=== PATIENT | female | born 2000 | race Caucasian/White ===

== ENCOUNTER 2023-02-06 06:07 | Emergency (ER) | payer MEDICAID ==
[~2023-02-06] VITALS: Ht 160 cm; Wt 62.8 kg
[2023-02-06 06:15] VITALS: BP 113/67; PULSE 102; RESP 16; TEMP 98.2; O2SAT 99
[2023-02-06] MEDS ORDERED: AUG875T PO (07:01)
[2023-02-06] MEDS ORDERED: METH4PAK PO (07:01)
== END 2023-02-06 07:12 | disposition home or self-care (01) ==
LOC: ER 06:07
DX: H66.91 Otitis media, unspecified, right ear (principal); Z88.6 Allergy status to analgesic agent; Z91.013 Allergy to seafood

== ENCOUNTER 2023-02-24 16:14 | Inpatient (IN) | payer MEDICAID ==
[~2023-02-24] VITALS: Ht 160 cm; Wt 62.1 kg
[~2023-02-24 16:14] MED LIST: AUG875T PO; METH4PAK PO
[2023-02-24] MEDS ORDERED: IPRATROPIUM BROM 0.5 MG/2.5ML INH SOL NEB ONE (19:00)
[2023-02-24] MEDS ORDERED: guaiFENesin-CODEINE Liq 5 ML UD PO ONE (19:00)
[2023-02-24] MEDS ORDERED: Acetam/CODEINE 120mg/12mg per 5mL UD PO ONE (19:00)
[2023-02-24] MEDS ORDERED: DexAMETHasone SOD PHOS 10MG/1ML VIAL INJ IM ONE (19:00)
[2023-02-24 19:24] LABS: Basophils # (auto) 0 10 ^3/uL (0-0.2); Basophils % (auto) 0.3 % (0.0-2.0); Eosinophils # (auto) 0.1 10 ^3/uL (0-0.8); Eosinophils % (auto) 1.2 % (0.0-7.0); Hematocrit 42.5 % (36.0-46.0); Hemoglobin 14.3 g/dL (12.2-16.2); Lymphocytes # (auto) 1.2 10 ^3/uL (0.4-5.4); Lymphocytes % (auto) 9.7 % (10.0-50.0); Mean Corpuscular Hemoglobin 31.1 pg (28.0-32.0); Mean Corpuscular Hgb Conc. 33.7 g/dL (32.0-36.0); Mean Corpuscular Volume 92.5 fL (80.0-100.0); Monocytes # (auto) 0.6 10 ^3/uL (0-1.3); Monocytes % (auto) 4.9 % (0.0-12.0); Neutrophils # (auto) 10.6 10 ^3/uL (1.6-8.6); Neutrophils % (auto) 83.9 % (37.0-80.0); Red Blood Cells 4.59 10^6/uL (4.0-5.20); Red Cell Distribution Width 13.4 % (11.8-14.3); White Blood Cell 12.6 10^3/uL (4.4-10.8)
[2023-02-24 19:40] LABS: Alanine Aminotransferase 16 U/L (7-40); Alkaline Phosphatase 63 U/L (46-116); Anion Gap 10 (5-15); Aspartate Aminotransferase 17 U/L (13-40); BUN/Creatinine Ratio 14.3 (10.0-20.0); Bilirubin, Total 0.6 mg/dL (0.2-1.0); Blood Urea Nitrogen 12 mg/dL (9-23); Carbon Dioxide 24 mmol/L (20-30); Chloride 108 mmol/L (98-107); Glucose 80 mg/dL (74-106); Potassium 4.2 mmol/L (3.5-5.1); Sodium 142 mmol/L (136-145); Total Protein 7.2 g/dL (5.7-8.2)
[2023-02-24 19:49] LABS: CRP High Sensitivity 1.64 mg/dL (<1.0)
[2023-02-24] MEDS: LEVALBUTEROL HCL 1.25 MG/3 ML NEB NEB SCH (20:12)
[2023-02-24 20:14] LABS: Erythrocyte Sedimentation Rate 12 mm/hr (0-20)
[2023-02-24] MEDS ORDERED: ACETAMINOPHEN/CODEINE#3 (300/30mg) TAB PO ONE (20:15)
[2023-02-24 20:30] VITALS: PULSE 96; RESP 16; O2SAT 99
[2023-02-24 21:28] LABS: COVID19 ANTIGEN SOFIA FIA NEGATIVE (NEGATIVE); Rapid Influenza A Negative (Negative); Rapid Influenza B Negative (Negative)
[2023-02-25] VITALS (7 sets, daily range): BP systolic 100–128; BP diastolic 58–84; PULSE 73–105; RESP 14–19; TEMP 97.9–98.4; O2SAT 96–99
[2023-02-25] MEDS ORDERED: ALBUTEROL SULF 2.5 MG/0.5ML(0.5%) NEB SOLN NEB PRN (04:00)
[2023-02-25] MEDS ORDERED: NITROGLYCERIN 0.4 MG SL TAB SL PRN (04:00)
[2023-02-25] MEDS ORDERED: ACETAMINOPHEN 325 MG TAB PO PRN (04:00)
[2023-02-25] MEDS ORDERED: MORPHINE SULFATE INJ 2 MG/ml SYRG IV PRN (04:00)
[2023-02-25] MEDS ORDERED: ONDANSETRON HCL 4 MG/2 ML VIAL IV PRN (04:00)
[2023-02-25] MEDS: LEVALBUTEROL HCL 1.25 MG/3 ML NEB NEB SCH ×2 (07:23→11:49)
[2023-02-25] MEDS ORDERED: cefTRIAXone 1GM/50ML D5W 50 ML IV SCH (09:00)
== END 2023-02-25 15:15 | disposition home or self-care (01) | DRG 145 ==
LOC: ER 16:14 → TELE 02-25 03:53 → UNDOADMIN 02-25 03:53 → TELE 02-25 04:00 → ER 02-25 04:00 → TELE 02-25 15:02
PROVIDERS: ADMIT Nurse Practitioner; ATTEND Nurse Practitioner
DX: J20.9 Acute bronchitis, unspecified (principal); D72.829 Elevated white blood cell count, unspecified; Z20.822 Contact with and (suspected) exposure to COVID-19; F41.9 Anxiety disorder, unspecified; Z88.8 Allergy status to other drugs, medicaments and biological substances; Z91.041 Radiographic dye allergy status; Z91.013 Allergy to seafood; Z91.018 Allergy to other foods; Z86.018 Personal history of other benign neoplasm
CPT/HCPCS: 36415; 71045; 80053; 83735; 84443; 84484; 85025; 85652; 86141; 87426; 87804; 93005; 93306; 94640; 96365; 96372; G0378; J1100

== ENCOUNTER 2023-11-12 08:26 | Emergency (ER) | payer MEDICAID ==
[~2023-11-12] VITALS: Ht 160 cm; Wt 62.9 kg
[2023-11-12 09:04] VITALS: BP 136/84; PULSE 98; RESP 18; TEMP 98.1; O2SAT 98
[2023-11-12] MEDS ORDERED: AMOX500C2 PO (09:25)
== END 2023-11-12 09:37 | disposition home or self-care (01) ==
LOC: ER 08:26
DX: J01.00 Acute maxillary sinusitis, unspecified (principal); Z85.9 Personal history of malignant neoplasm, unspecified; Z87.891 Personal history of nicotine dependence; Z79.899 Other long term (current) drug therapy; Z91.013 Allergy to seafood; Z88.8 Allergy status to other drugs, medicaments and biological substances; Z91.018 Allergy to other foods

== ENCOUNTER 2024-01-12 08:55 | Emergency (ER) | payer MEDICAID ==
[~2024-01-12] VITALS: Ht 160 cm; Wt 65.0 kg
[~2024-01-12 08:55] MED LIST changes: +AMOX500C2 PO
--- NOTE | 2024-01-12 09:35 | ED.PDOC ---
History of Present Illness HPI Comments 23-year-old female who comes in with chief complaint of right-sided back pain. The patient states that she has been having increased symptoms and has been worked up by her neurologist. The patient states that she had a CT scan of her thoracic spine which showed an old T8 and T11 fracture. The patient states that the pain is a 10/10. She takes baclofen for the pain at this time. There has been no vomiting or diarrhea. The patient denies any fever or chills. Chief Complaint: Back Pain Time Seen by MD: 08:58 Primary Care Provider: liv Reviewed Notes: Nurses Notes, Medications, Allergies (Allergies listed above) Allergies: Coded Allergies: [place] (Verified Allergy, Unknown, 11/14/15) Fish Allergy (Verified Allergy, Unknown, 11/14/15) Iodine (Verified Allergy, Unknown, 11/14/15) Propranolol (Verified Allergy, Unknown, 02/24/23) Shellfish Allergy (Verified Allergy, Unknown, 11/14/15) Soy Allergy (Verified Allergy, Unknown, 02/24/23) Wheat (Verified Allergy, Unknown, 02/24/23) Uncoded Allergies: PROPANOLOL (Allergy, Unknown, 11/14/15) SOY (Allergy, Unknown, 11/14/15) WHEAT (Allergy, Unknown, 11/14/15) Home Meds Active Scripts Hydrocodone-Acetaminophen (Hydrocodone Bitartrate/AC 5-325 mg) 1 Tab Tab, 1 TAB PO Q8HP PRN for 5 Days, #15 TAB Prov:KARLA CHAPMAN MD 01/12/24 Methylprednisolone (Medrol Dosepak) 4 Mg Solo, 4 MG PO UD, #21 TAB UAD Prov:KARLA CHAPMAN MD 01/12/24 Methylprednisolone (Medrol Dosepak) 4 Mg Solo, 4 MG PO UD, #21 TAB UAD Prov:ROBERT MESSINA 11/12/23 Amoxicillin Trihydrate (Amoxicillin) 500 Mg Cap, 1 CAP PO TID, #30 CAP Prov:ROBERT MESSINA 11/12/23 Amoxicillin & Pot Clavulanate (AUGMENTIN TABLET) 875 Mg Tb, 875 MG PO BID, #20 TAB Prov:ROBERT MESSINA 02/06/23 Information Source: Patient Mode of Arrival: Ambulatory Severity: Moderate Timing: Days Duration: Since onset Prehospital treatment: None Location: Right-sided back pain Associated signs and symptoms No nausea, vomiting or diarrhea Past Medical History PAST MEDICAL HISTORY: Cancer Surgical History (Other): Previous history of brain surgery [employer] History: Denies all MET[employer] Hx Family History Family History: Reviewed,noncontributory to illness Social History Smoker: Other (VAPE) Alcohol: Denies ETOH Use Drugs: Marijuana Lives In: Home Constitutional: denies: chills, diaphoresis, fatigue, fever, malaise, sweats, weakness, others EENTM: denies: blurred vision, double vision, ear bleeding, ear discharge, ear drainage, ear pain, ear ringing, eye pain, eye redness, hearing loss, mouth pain, mouth swelling, nasal discharge, nose bleeding, nose congestion, nose pain, photophobia, tearing, throat pain, throat swelling, voice changes, others Respiratory: denies: cough, hemoptysis, orthopnea, SOB at rest, shortness of breath, SOB with excertion, stridor, wheezing, others Cardiovascular: denies: chest pain, dizzy spells, diaphoresis, Dyspnea on exertion, edema, irregular heart beat, left arm pain, lightheadedness, palpitations, PND, syncope, others Gastrointestinal: denies: abdomen distended, abdominal pain, blood streaked bowels, constipated, diarrhea, dysphagia, difficulty swallowing, hematemesis, melena, nausea, poor appetite, poor fluid intake, rectal bleeding, rectal pain, vomiting, others Genitourinary: denies: abnormal vagina bleeding, burning, dyspareunia, dysuria, flank pain, frequency, hematuria, incontinence, pain, , vagina discharge, urgency, others Neurological: denies: dizziness, fainting, headache, left sided numbness, left sided weakness, numbness, paresthesia, pre-existing deficit, right sided numbness, right sided weakness, seizure, speech problems, tingling, tremors, weakness, others Musculoskeletal: reports: back pain (Right-sided back pain); denies: gout, joint pain, joint swelling, muscle pain, muscle stiffness, neck pain, others Integumetry: denies: bruises, change in color, change in hair/nails, dryness, laceration, lesions, lumps, rash, wounds, others Allergic/Immunocompromised: denies: Difficulty Healing, Frequent Infections, Hives, Itching, others Hematologic/Lymphatic: denies: anemia, blood clots, easy bleeding, easy bruising, swollen glands, others Endocrine: denies: excessive hunger, excessive sweating, excessive thirst, excessive urination, flushing, intolerance to cold, intolerance to heat, unexplained weight gain, unexplained weight loss, others Psychiatric: denies: anxiety, bipolar disorder, depression, hopeless, panic disorder, schizophrenia, sleepless, suicidal, others Physical Exam General Appearance: Mild Distress HEENT: Normal ENT Inspection, Pharynx Normal, TMs Normal Neck: Full Range of Motion, Non-Tender, Normal, Normal Inspection Respiratory: Chest Non-Tender, Lungs Clear, No Accessory Muscle Use, No Respiratory Distress, Normal Breath Sounds Cardiovascular: No Edema, No JVD, No Murmur, No Gallop, Normal Peripheral Pulses, Regular Rate/Rhythm Breast Exam: Deferred Gastrointestinal: No Organomegaly, Non Tender, No Pulsatile Mass, Normal Bowel Sounds, Soft Genitalia: Deferred Pelvic: Deferred Rectal: Deferred Extremities: No calf tenderness, Normal capillary refill, Normal inspection, N ormal range of motion, Non-tender, No pedal edema Musculoskeletal : Location: Right Extremity Location: Back Apperance: Limited ROM, Tenderness: Moderate Neurologic: Alert, legal activity adjudicator II-XII nml as Tested, No Motor Deficits, Normal Affect, Normal Mood, No Sensory Deficits Cerebellar Function: Normal Reflexes: Normal Skin: Dry, Normal Color, Warm Lymphatic: No Adenopathy Was a procedure done? Was a procedure done?: No Differential Dx Considerations may include: Fracture, strain, contusion X-Ray, Labs, Meds, VS Vital Signs Date Time Temp Pulse Resp B/P (MAP) Pulse Ox O2 Delivery O2 Flow Rate FiO2 01/12/24 09:20 97.6 100 18 133/67 (89) 99 The patient was given Dilaudid 1 mg IM for the pain The patient's CT scan of the thoracic spine shows: IMPRESSION: 1. Stable moderate anterior compression deformity of T8 with approximately 30% loss of height anteriorly without retropulsion. This can be further evaluated with MRI if clinically warranted. 2. No significant degenerative disc disease. The patient was told to follow up with the primary care doctor The patient was given a prescription of [place] Images Reviewed?: Images reviewed and evaluated by me Time of 1ST Reevaluation: 09:30 Reevaluation 1ST: Unchanged Patient Education/Counseling: Diagnosis, Treatment, Prognosis, Need For Follow Up Family Education/Counseling: No Family Present Departure 1 Departure Time of Disposition: 10:42 Impression: Primary Impression: Chronic back pain Qualified Codes: M54.6 - Pain in thoracic spine; G89.29 - Other chronic pain Additional Impression: Compression fx, thoracic spine Qualified Codes: S22.000S - Wedge compression fracture of unspecified thoracic vertebra, sequela Disposition: HOME / SELF CARE / HOMELESS Condition: Fair e-Prescriptions Hydrocodone-Acetaminophen (Hydrocodone Bitartrate/AC 5-325 mg) 1 Tab Tab 1 TAB PO Q8HP PRN for 5 Days, #15 TAB Prov: KARLA CHAPMAN MD 01/12/24 Methylprednisolone (Medrol Dosepak) 4 Mg Solo 4 MG PO UD, #21 TAB UAD Prov: KARLA CHAPMAN MD 01/12/24 Discharged With: Self Critical Care Note Critical Care Time?: No Stability Stability form required: No Heart Score Heart Score: Heart Score Response (Comments) Value History N/A 0 EKG N/A 0 Age N/A 0 Risk Factors N/A 0 Troponin N/A 0 Total 0 KARLA CHAPMAN MD Jan 12, 2024 09:35
--- NOTE | 2024-01-12 10:23 | DVH ---
Procedure: CT THORACIC SPINE WO CONTRAS 01/12/2024 09:39 AM Indication: pain Comparison Study: Chest CT angiogram dated 02/24/2023 Technique: Axial images were obtained and reformatted in coronal and sagittal planes. All CT scans at this medical facility are performed using dose modulation techniques as appropriate t o a performed exam including the following: Automated exposure control was utilized; adjustment of th e MA and/or KV according to patient size; and use of iterative reconstruction technique. CT Dose: CTDI volume is 11.52 mGy. Dose-length product is 486.55 mGy*cm FINDINGS: Bones: Stable moderate anterior compression deformity of T8 with approximately 30% loss of height ant eriorly without retropulsion. Disc spaces are maintained. No discogenic endplate changes noted. The p osterior facet joints are well aligned. Soft tissues: Unremarkable. IMPRESSION: 1. Stable moderate anterior compression deformity of T8 with approximately 30% loss of height anterio rly without retropulsion. This can be further evaluated with MRI if clinically warranted. 2. No significant degenerative disc disease.
[2024-01-12] MEDS ORDERED: HYDR-4902 PO (10:40)
[2024-01-12] MEDS ORDERED: METH4PAK PO (10:40)
[2024-01-12] MEDS: ONDANSETRON HCL 4 MG/2 ML VIAL IM ONE (10:55)
[2024-01-12] MEDS: HYDROMORPHONE HCL 1 MG/ML INJ IM ONE (10:56)
[2024-01-12 11:17] VITALS: TEMP 97.7; O2SAT 99
[2024-01-12 11:22] VITALS: BP 124/69; PULSE 67; RESP 16
== END 2024-01-12 11:27 | disposition home or self-care (01) ==
LOC: ER 08:55
DX: S22.060A Wedge compression fracture of T7-T8 vertebra, initial encounter for closed fracture (principal); G89.29 Other chronic pain; M54.6 Pain in thoracic spine; F17.290 Nicotine dependence, other tobacco product, uncomplicated; F15.90 Other stimulant use, unspecified, uncomplicated; Z85.9 Personal history of malignant neoplasm, unspecified; Z88.8 Allergy status to other drugs, medicaments and biological substances; Z98.890 Other specified postprocedural states; Z91.041 Radiographic dye allergy status; Z91.013 Allergy to seafood; Z91.018 Allergy to other foods; Z79.899 Other long term (current) drug therapy; X58.XXXA Exposure to other specified factors, initial encounter; Y93.89 Activity, other specified; Y92.89 Other specified places as the place of occurrence of the external cause; Y99.8 Other external cause status
CPT/HCPCS: 72128; 96372; 99285; J1170; J2405